=== PATIENT | male | born 1995 | race Caucasian/White ===

== ENCOUNTER 2018-02-19 13:10 | Emergency (ER) | payer OTHER ==
[~2018-02-19] VITALS: Ht 177.8 cm; Wt 60.2 kg
[2018-02-19 13:27] VITALS: BP 150/91; PULSE 90; TEMP 37.1; O2SAT 95; Ht 177.8 cm; Wt 60.2 kg
--- NOTE | 2018-02-19 14:25 | EMERGENCY ROOM VISIT NOTE ---
ED Visit Note First contact with patient: 13:36 CHIEF COMPLAINT: Head injury and right upper arm pain after a fall 5 days ago HISTORY OF PRESENT ILLNESS: Patient is a 22-year-old male who presents emergency department accompanied by his roommates for evaluation after he sustained a fall down a flight of outdoor wooden steps about 5 days ago. He reports that he was moving into his place, when he lost his balance and fell. He leaves that he struck his head and may have lost consciousness very briefly. He initially noticed pain in the top of the right shoulder. Shoulder was fairly sore for the first couple of days, but he has gradually begun some gentle range of motion exercises on the shoulder is less stiff and his movement is improving. He does still have some discomfort with reaching across his body or reaching above shoulder height. With regards to the head injury, the patient noted some soreness on the right side of his head, there was no swelling or laceration. He denies experiencing any headaches, lightheadedness or dizziness, nausea, vomiting difficulty with balance, speech or coordination. He does have a history of recurrent concussions, had a fairly significant concussion when he was in eighth grade which required him to be pulled out of school for roughly a month and kept him out of sports for 1 year. He does admit that he has been drinking alcohol frequently this week as it is "syllabus week," last alcohol consumption was yesterday. The patient denies any neck pain. He has no other complaints regarding the fall. REVIEW OF SYSTEMS: Review of systems as per HPI. All other systems reviewed were negative. 10 systems reviewed. PMH: Electronic medical records are reviewed and summarized as above/below. See Problem List. SOCIAL HISTORY: Patient is a college student from near [place] who lives here locally with roommates. Positive tobacco use, positive alcohol use. PHYSICAL EXAM: Vital Signs: Reviewed Nurse's notes. CONSTITUTIONAL: Patient is a well-appearing 22-year-old male who is awake and alert and in no acute distress. HEENT: Normocephalic, atraumatic. Pupils equal, round, reactive to light and accommodation. EOMs intact without nystagmus. Sclera are anicteric. Tympanic membranes intact, with normal landmarks. External canals are clear. No hemotympanum or Gregg sign. Oral and nasopharynx are clear. No CSF rhinorrhea. Mucous membranes are moist. NECK: Supple, nontender, no lymphadenopathy. Full range of motion. HEART: Regular rate and rhythm, with normal S1 and S2, no murmur or gallop or rub is heard. LUNGS: Breath sounds equal and clear to auscultation without wheezes, rales, or rhonchi heard. SKIN: No lesions or rash, normal skin turgor. EXTREMITIES: Examination of the right shoulder does not reveal any obvious deformity. No tenderness over the clavicle or the acromioclavicular joint. Passively he can be internally and externally rotated fully. He has pain with forward flexion and abduction greater than 90. Rotator cuff strength testing limited only by discomfort. The right upper extremity is neurovascularly intact. NEUROLOGICAL: Alert and oriented x4. Cranial nerves 2 through 12, sensation and strength grossly intact. Gait is normal. Patient is able to toe, heel and tandem walk without difficulty. Negative Romberg, and pronator drift. Finger to nose, finger to finger and rapid alternating movements are intact. Immediate , recent and remote memories are intact. Concentration is normal. Psychiatric: Patient is alert, oriented and well groomed. He has appropriate eye contact. He denies homicidal or suicidal thoughts or ideations. ED COURSE: The patient was seen and evaluated as above. He is here with 3 of his male friends/roommates. Patient became tearful, and acutely anxious during the history, reporting he was having flashbacks from his prior concussion from when he was younger. Patient was questioned with his friends out of the room regarding any feelings of depression or anxiety, which he denied. With regards to his fall, I did offer him right shoulder x-rays, but he declined. He would like to continue working the shoulder on his own, and will follow-up if his symptoms are not improving. With regards to the suspected head injury, the patient is not endorsing any symptoms consistent with a concussion, but nonetheless he does have a history of multiple concussions and he was encouraged to follow-up with [facility] in their Concussion Clinic if his symptoms change. They cannot certainly also evaluate his shoulder injury. Based on his mechanism of injury and benign neurologic exam, I do not feel that a head CT is indicated at this time, and he agrees and would like to defer. Patient's friends spoke with me in private, expressing concerns regarding his mental well being. At their request, I did have the emergency department psychiatric field nurse case manager, Debo Pardo, meet with the patient. Please refer to her mental health assessment. She agrees that the patient is not felt to be a danger to himself or others, and he is not agreeable to release of information or for a referral to [facility] to be made. There is no criteria for a 302 petition. He and his friends were both given information for mental health resources in the community as well as crisis intervention contact information. The patient and his friends left without receiving his written discharge instructions. Nursing staff attempted to contact him and were unable to reach him. Differential diagnoses entertained included shoulder dislocation, acromioclavicular separation, clavicle fracture, rotator cuff or labral injury, concussion, postconcussive syndrome, anxiety, depression, bipolar disorder, psychosis, substance abuse, among others. Medication reconciliation: I attest that I have personally reviewed the patient' s current medication list. Blood pressure screening: Patient was found to have a slightly elevated blood pressure due to circumstances. I do not believe that the patient requires hypertension monitoring. Problem List Medical Problems: (1) Alcohol overdose Status: Resolved (2) History of multiple concussions Status: Resolved Current/Historical Medications Unable to Obtain Active Prescriptions or Reported Meds Allergies Coded Allergies: No Known Allergies (Unverified , 02/19/18) Vital Signs Date Time Temp Pulse Resp B/P (MAP) Pulse Ox O2 Delivery O2 Flow Rate FiO2 02/19/18 13:27 37.1 90 16 150/91 95 Room Air Departure Information Impression Primary Impression: Right shoulder injury Additional Impression: Closed head injury Prescriptions Unable to Obtain Active Prescriptions or Reported Meds Referrals [facility] (PCP) Nick Patten MD [facility] Can be reevaluted here for the right shoulder injury and for post-concussion care. Patient Instructions [facility] Additional Instructions CONCUSSION DISCHARGE INSTRUCTIONS: What is a concussion? A concussion is a disturbance in the function of the brain caused by a direct or indirect force to the head. It results in a variety of symptoms like: headache, balance problems, nausea, vomiting, vision problems, hearing problems/ringing, drowsiness, irritability, and/or difficulty concentrating or remembering. A concussion may, or may not involve memory problems or loss of consciousness. Concussion instructions: Stop and stay away from ALL physical activity until you are symptom free from: Headaches Balance problems Feeling "dinged" Poor concentration Drowsy Fatigued Rest and avoid strenuous activities for the next few days. Get 8-10 hours of sleep per night. Limit activities that involve significant concentration and attention during this time to speed your recovery. This includes studying, attending school, playing video games, and heavy reading. Your brain needs to rest. Eat right and eat often. Now is the time to feed your brain. Well balanced diets that avoid high sugar foods, sodas, caffeine, etc. are better for your brain. NO ALCOHOL OR DRUGS! Avoid stimulants like caffeine, red bull, mountain dew, "energy" drinks, etc. Stepwise return to sports for athletes: You may progress to the next step after 24 hours if you are symptom free. If you experience symptoms, you must return to the previous stage and try again after another 24 hours of rest and being symptom free. Best case scenario is full contact game play in 96 hours from the time of injury. Remember repeat concussions are worse than the first. Time invested in recovery will allow for better performance and less downtime in the future. If you have any questions see your canine service instructor trainer or make an appointment to see one of the team physicians. 1) No activity, complete rest. Once all symptoms have resolved, report to the team physician or canine service instructor trainer to be cleared to progress to step 2. 2) Start light aerobic exercise, such as walking or stationary cycling, no resistance training permitted. 3) Sport specific exercises. Add light resistance slowly. Go slow to allow your body to readapt. 4) Non-contact full speed practice. 5) Full contact practice and/or game play. FOLLOW UP INSTRUCTIONS: You should have a follow up with [facility] or with [facility] for further care and management of your shoulder injury and head injury. Return to the ED for severe headaches, lethargy, confusion, repeated vomiting, problems with balance or coordination, unusual behavior, severe anxiety or depression, thoughts of hurting yourself or others, inability to function, hallucinations, worsening of your condition, or as needed. POST CONCUSSIVE SYNDROME: Occasionally patients can experience a postconcussive syndrome which includes prolonged headaches and memory difficulties. This may occur over the next several days, weeks or rarely, even months. It is important to have a primary care physician follow-up in order to help if the situation develops. Problem Qualifiers
== END 2018-02-19 16:22 | disposition home or self-care (01) ==
LOC: C.EDB 13:12 → C.EDD 16:22
DX: S49.91XA Unspecified injury of right shoulder and upper arm, initial encounter (principal); S09.90XA Unspecified injury of head, initial encounter; W10.9XXA Fall (on) (from) unspecified stairs and steps, initial encounter; Z87.820 Personal history of traumatic brain injury; Z72.0 Tobacco use